=== PATIENT | male | born 1935 | race Caucasian/White ===

== ENCOUNTER 2023-07-01 10:58 | Emergency (ER) | payer MEDICARE, BC, SELFPAY ==
[2023-07-01 11:08] VITALS: BP 171/87; PULSE 67; RESP 16; TEMP 36.6; O2SAT 99; BMI 25.0
--- NOTE | 2023-07-01 11:12 | ED_ITS ---
HPI - General Adult General Chief complaint: Urogenital Problems, Male Stated complaint: peeing blood Time Seen by Provider: 07/01/23 11:10 History of Present Illness HPI narrative: Pt peeing blood since last night, it is worrisome, so he came in today. Pt has not had any prostate or bladder issues that he knows of in the pas,t except for the occasional UTI that clears after a dose of abx. He states his balance has been off the last few days as well. No fever, no chills, no nausea. He is leaving a urine sample. 88-year-old man presenting to the emergency department with concern of hematuria. He did have onset of this last night. Has not had any particular problems with urinary issues including urinary retention but he has had 1 urinary tract infection in the past. I am able to locate records noting pansensitive E coli grown from a urine culture collected on 06/10/2023. After further investigation sounds as though was treated with Bactrim DS. Otherwise he does not note any weakness but balance has been off but this is something he has struggled with for a rather long time. No dysuria. No chills. No anticoagulants. Remote smoking Related Data Home Medications Medication Instructions Recorded Confirmed amlodipine 2.5 mg tablet 2.5 mg PO QDAY 05/30/22 07/01/23 chlorthalidone 25 mg tablet 25 mg PO QDAY 05/30/22 07/01/23 cholecalciferol (vitamin D3) 50 50 mcg PO QDAY 05/30/22 07/01/23 mcg (2,000 unit) capsule dorzolamide 2 % eye drops 1 drp ophthalmic (eye) TID 05/30/22 07/01/23 ergocalciferol (vitamin D2) 10 mcg 10 mcg PO QDAY 05/30/22 07/01/23 (400 unit) tablet latanoprost 0.005 % eye drops 1 drp ophthalmic (eye) QDAY 05/30/22 07/01/23 lisinopril 40 mg tablet 40 mg PO QDAY 05/30/22 07/01/23 rosuvastatin 5 mg tablet 5 mg PO QDAY 05/30/22 07/01/23 artificial tears with lanolin eye 1 applic ophthalmic (eye) DAILY 07/01/23 07/01/23 ointment (Ultra Fresh PM eye ointment) betamethasone valerate 0.12 % 1 applic topical DAILY PRN 07/01/23 07/01/23 topical foam ketoconazole 2 % topical foam 1 applic topical BID 07/01/23 07/01/23 vitamin E mixed 400 unit tablet 400 unit PO DAILY 07/01/23 07/01/23 Allergies Allergy/AdvReac Type Severity Reaction Status Date / Time acetaminophen [From Vicodin] Allergy Verified 07/01/23 11:07 hydrocodone [From Vicodin] Allergy Verified 07/01/23 11:07 propoxycaine Allergy Verified 07/01/23 11:07 Review of Systems Status of ROS: Reports: 6 or more systems reviewed and unremarkable except as noted in History and below [facility] Medical History Nasal congestion ?R09.81 - Nasal congestion (ICD-10) Social History Smoking Status: Former smoker Exam Narrative: Exam Narrative: Very pleasant. NAD. Transitioning without difficulty. Breathing easily easily conversant. Lungs appear to be clear. Abdomen is soft and slightly uncomfortable to palpation in the right suprapubic area and a little centrally. I do not appreciate any swelling or masses. There is no flank pain. I do not see blood at the urinary meatus. Extremities are well perfused without edema. Heart in regular rate and rhythm. Const: Vital Signs, click to edit/add: Vital Signs - 24 hr 07/01/23 11:08 Temperature 97.9 F Pulse Rate [Right Pulse Oximeter] 67 Respiratory Rate 16 Blood Pressure [Ri ght Upper Arm] 171/87 H Pulse Oximetry 99 Oxygen Delivery Me thod Room Air Documenting provider has reviewed patient's vital signs: yes Course Vital Signs Vital signs: Initial Vital Signs Temperature 97.9 F 07/01/23 11:08 Temperature Source Temporal Artery Scan 07/01/23 11:08 Pulse Rate 67 07/01/23 11:08 Pulse Rhythm Regular 07/01/23 11:08 Pulse Strength 3+ Normal 07/01/23 11:08 Respiratory Rate 16 07/01/23 11:08 Blood Pressure 171/87 H 07/01/23 11:08 Blood Pressure Mean 115 H 07/01/23 11:08 Blood Pressure Position Sitting 07/01/23 11:08 Pulse Oximetry 99 07/01/23 11:08 Oxygen Delivery Method Room Air 07/01/23 11:08 Vital Signs Temperature 97.9 F 07/01/23 11:08 Pulse Rate 67 07/01/23 11:08 Respiratory Rate 16 07/01/23 11:08 Blood Pressure 171/87 H 07/01/23 11:08 Pulse Oximetry 99 07/01/23 11:08 Oxygen Delivery Method Room Air 07/01/23 11:08 Temperature 97.9 F 07/01/23 11:08 Pulse Rate 67 07/01/23 11:08 Respiratory Rate 16 07/01/23 11:08 Blood Pressure 171/87 H 07/01/23 11:08 Pulse Oximetry 99 07/01/23 11:08 Oxygen Delivery Method Room Air 07/01/23 11:08 Medical Decision Making MDM Narrative Medical decision making narrative: A like to see 1st of all whether looks more like a urinary tract infection. Does not seem to have pain consistent with kidney stone. No family history of this either. Provided it does not look like an infection, would then do further workup for hematuria. Discussed differential with Mr. Easton in that case. Was treated for recent urinary tract infection or least in the 3rd week or so of May this last year with Bactrim DS. Would use caution with Bactrim DS in this age group. Looks like cephalosporin might work with Mr. Easton in this case. Absent more significant pain and findings in urinalysis I suspect this is urinary tract infection would treat it as such at this point See patient discharge plan Lab Data Lab results reviewed: Yes I reviewed the patient's lab results Labs: Lab Results 07/01/23 Range/Units 11:09 Urine Color Red A (Yellow) Urine Appearance Slightly Cloudy A (Clear) Urine pH 5.5 (5.0-8.5) Ur Specific [place] 1.020 (1.000-1.030) Urine Protein 3+ A (Negative) Urine Glucose (UA) Negative (Negative) Urine Ketones 1+ A (Negative) Urine Blood 3+ A (Negative) Urine Nitrite Positive A (Negative) Urine Bilirubin 3+ A (Negative) Urine Urobilinogen 2.0 A (0.2-1.0) Ur Leukocyte Esterase 3+ A (Negative) Urine RBC >100 A (0-2) Urine WBC 25-50 A (0-5) Ur Squamous Epith Cells Few (None-Few) Urine Bacteria Many A (None) Discharge Plan Discharge Clinical Impression: Hematuria, Cystitis Patient Disposition: Home w/ Parent or Adult Condition: Stable Instructions: Hematuria (ED) Additional Instructions: stay well-hydrated ideally with water. Be seen/return for increasing pain and difficulty with urination, worsening lightheadedness or shortness of breath, associated fever. Otherwise I would follow-up in 3-4 weeks for urinalysis; a recheck to be sure of clearing. We will be culturing urine here. You will get a call if the antibiotic is not ideal. cephalexin from [facility]. Take for 8 days. Activity Level: No Restrictions Discharge Diet: Regular Prescriptions: No Action dorzolamide 2 % drops 1 drp ophthalmic (eye) TID latanoprost 0.005 % drops 1 drp ophthalmic (eye) QDAY lisinopril 40 mg tablet 40 mg PO QDAY chlorthalidone 25 mg tablet 25 mg PO QDAY amlodipine 2.5 mg tablet 2.5 mg PO QDAY rosuvastatin 5 mg tablet 5 mg PO QDAY cholecalciferol (vitamin D3) 50 mcg (2,000 unit) capsule 50 mcg PO QDAY ergocalciferol (vitamin D2) 10 mcg (400 unit) tablet 10 mcg PO QDAY ketoconazole 2 % foam 1 applic topical BID vitamin E mixed 400 unit tablet 400 unit PO DAILY Ultra Fresh PM Ointment 1 applic ophthalmic (eye) DAILY betamethasone valerate 0.12 % foam 1 applic topical DAILY PRN Follow Up/Referrals: Fahad Copeland MD [Primary Care Provider] - Stand Alone Forms: [employer] Info Instructions
[2023-07-01 11:17] LABS: Appearance Urine Slightly Cloudy (Clear); Bilirubin Urine 3+ (Negative); Blood Urine 3+ (Negative); Color Urine Red (Yellow); Glucose Urine Negative (Negative); Ketones Urine 1+ (Negative); Leukocyte Esterase Urine 3+ (Negative); Nitrite Urine Positive (Negative); Protein Urine 3+ (Negative); pH Urine 5.5 (5.0-8.5)
[2023-07-01 11:29] LABS: RBC Urine >100 (0-2)
[2023-07-01 11:30] LABS: Bacteria Urine Many; Squamous Epithelial Cell Urine Few (None-Few); WBC Urine 25-50 (0-5)
--- OUTSIDE RECORDS SUMMARY | 2023-07-01 11:51 | XMS_ITS | Encounter Summary ---
Author Name Department of [facility] Organization Department of [facility] Address [address] [place] [address] Support Name Relationship Address Phone ELIANE NAILS Next of Kin [address], [place] [phone] NEMOELIANE Quiroga Emergency Contact [address] [place], [place] [phone] Insurance Providers: All historical and current Section Date Range: From patient's date of to the date document was created. This section includes the names of all active insurance providers for the patient. Insurance Provider Type of Coverage Plan Name Start of Policy Coverage End of Policy Coverage Group Number Member ID Insurance Provider's Telephone Number Policy Bhagat's Name Patient's Relationship to Policy Bhagat [facility] (WNR) MEDICARE ADVANTAGE [facility] (WNR) Jun 20, 2016 [id number] [phone] LORRIE NAILS ERT PATIENT [facility] (WNR) MEDICARE ADVANTAGE [facility] (WNR) Jun 20, 2016 [id number] [phone] LORRIE NAILS PATIENT Selected Encounter This section includes the information on record at [place] for the Encounter. Date/Time Encounter Type Encounter Description Reason Provider Source Oct 08, 2022 03:30 PM OFFICE O/P EST MOD 30-39 MIN PRIMARY CARE/MEDICINE ICD-10-CM I10 Essential (primary) hypertension DAVONTE,MICH B IHE Encounter Template Text not used by [place] Assessments - Encounter Diagnoses This section includes the primary and secondary diagnoses documented for the Encounter. Date/Time Primary/Secondary Diagnosis Diagnosis Name Provider Source Oct 08, 2022 05:29 PM PRIMARY Essential (primary) hypertension DAVONTE,MICH B [facility] Oct 08, 2022 05:29 PM SECONDARY Hyperlipidemia, unspecified DAVONTE,MICH B [facility] Lab Results: +/- 30 days of the encounter This section includes the Chemistry and Hematology Lab Results on record with [place] for the patient. Radiology Reports and Pathology Reports are provided separately, in subsequent sections. Lab Results This section contains the Chemistry/Hematology Results that were resulted 30 days before or 30 daysafter the date of the Encounter. Date/Time Source Result Type Result - Unit Interpretation Reference Range Comment Oct 08, 2022 02:21 PM [facility] HEMOGLOBIN A1C Specimen Type: BLOOD Comment: Values obtained from A1C measurements can vary. For typical A1C assays, a reported value of 7.0 could actually be between 6.7 and 7.3 if measured by a reference method. A reported value of 9.0 could actually be between 8.7 and 9.3. Ref: http://www.ngs p.org/CAPdata. asp Ordering Provider: MICH ARAUZ Report Released Date/Time: Dec 18, 2021 10:51 AM Reporting Lab: [facility] [id number] Performing Lab: [facility] [id number] HEMOGLOBIN A1C 5.7 4.0-6.0 Oct 08, 2022 02:21 PM [facility] BASIC METABOLIC PANEL+MG Specimen Type: PLASMA No comment entered. Ordering Provider: MICH ARAUZ Report Released Date/Time: Dec 18, 2021 10:51 AM Reporting Lab: [facility] [id number] Performing Lab: [facility] [id number] CREATININE 0.6 L 0.7-1.2 UREA NITROGEN 14 8-26 GLUCOSE 146 H 70-100 SODIUM 137 136-145 POTASSIUM 3.5 3.5-5.1 CHLORIDE 102 98-107 CO2 28 22-29 CALCIUM 9.7 8.4-10.2 MAGNESIUM 1.9 1.6-2.6 ANION GAP 7 5-15 .CREAT EGFR(CKD-EPI ) >90 >60 Vital Signs: All taken on the encounter date This section contains inpatient and outpatient Vital Signs collected on the date of the Encounter. Date/Time Temperature Pulse Blood Pressure Respiratory Rate SP02 Pain Height Weight Body Mass Index Source Oct 08, 2022 03:17 PM 149/79 mm[Hg] 18 /min [facility] Oct 08, 2022 03:12 PM 98 F 67 /min 20 /min 99 % 0 70.5 in 177.5 lb 25 [facility] Social History: Smoking Status (Most current) and Tobacco Use (All prior to encounter date) This section includes the most current, and the historical, smoking and tobacco- related health factors from the [place] facility where the Encounter took place. Current Smoking Status This section includes the most current smoking, or tobacco-related health factor, from the [place] facility where the Encounter took place. Date/Time Current Smoking Status Comment Facil ity Oct 08, 2022 03:30 PM VA-TOBACCO NEVER USED [facility] Tobacco Use History This section includes a history of the smoking, or tobacco-related health factors, that were collected on or before the date of the Encounter. The data comes from the [place] facility where the Encounter took place. Date/Time Smoking Status/Tobacco Use Comment F acility October 23, 2020 10:30 AM VA-TOBACCO FORMER USER [facility] October 23, 2020 10:30 AM VA-TOBACCO QUIT 15 YRS OR MORE [facility] Jun 29, 2018 01:12 PM VA-TOBACCO FORMER USER [facility] Jun 29, 2018 01:12 PM VA-TOBACCO QUIT 15 YRS OR MORE [facility] Jul 22, 2017 10:25 AM FORMER TOBACCO USER 7Y OR GREATE R [facility] Sep 28, 2016 11:14 AM FORMER TOBACCO USER 7Y OR GREATE R [facility] Sep 29, 2015 10:08 AM FORMER TOBACCO USER 7Y OR GREATE R [facility] Jul 11, 2007 10:50 AM FORMER TOBACCO USER 7Y OR GREATE R [facility] Advance Directives: All historical and current Section Date Range: From patient's date of to the date document was created. This section includes ALL of a patient's completed or amended [place] Advance and Rescinded Directives. The entries below indicate that a directive exists for the patient, but an actual copy is not included with this document. The data comes from all [facility]. Date Advance Directives Provider Source Dec 06, 2020 [facility] Dec 06, 2020 ADVANCE DIRECTIVE DISCUSSION NICK RICKS [facility] October 19, 2004 ADVANCE DIRECTIVE RAMIRO ANAND [facility] Encounter Notes: All associated encounter notes This section contains the clinical notes associated to the Encounter. Date/Time Encounter Note(s) Provider Source Oct 08, 2022 03:55 PM ADMINISTRATIVE NOT E: LOCAL TITLE: AFTER VISIT SUMMARY NOTE STANDARD TITLE: ADMINISTRATIVE NOTE DICT DATE: OCT 08, 2022@15:55:32 ENTRY DATE: OCT 08, 2022@15:55:32 DICTATED BY: MICH ARAUZ EXP COSIGNER: URGENCY: STATUS: COMPLETED The patient was provided with a copy of an after-visit summary at the conclusion of the visit. A copy of the after-visit summary provided to the patient is available in [facility]. SCANNED DOCUMENT SIGNATURE NOT REQUIRED Electronically Filed: 10/08/2022 by: MICH ARAUZ MD STAFF PHYSICIAN MICH ARAUZ [facility] Oct 08, 2022 03:30 PM INTERNAL MEDICINE NOTE: LOCAL TITLE: MEDICINE CLINIC NOTE STANDARD TITLE: INTERNAL MEDICINE NOTE DATE OF NOTE: OCT 08, 2022@15:30 ENTRY DATE: OCT 08, 2022@17:26:32 AUTHOR: MICH ARAUZ EXP COSIGNER: URGENCY: STATUS: COMPLETED MEDICINE CLINIC NOTE Has ADDENDA MEDICINE CLINIC NOTE ASSESSMENT AND PLAN #Hypertension: Chlorthalidone 25 mg daily, lisinopril 40 mg, amlodipine 2.5 mg daily daily #Prediabetes: A1c OK today #Hyperlipidemia: On rosuvastatin 5 mg daily #Allergies: loratadine 10 mg PRN, Flonase #History of melanoma, 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 A total of 25 minutes was spent on this visit reviewing previous notes, counseling the patient, ordering or interpreting tests, adjusting meds, and documenting the findings in the note. CC: annual HPI The patient has been doing well recently and he has no specific complaints. His blood pressure is well controlled at home. He brought in a list of his blood pressure over the past month and it ranges between 102-125/50-60. Denies any episodes of dizziness. He is tolerating most medications well and is asking if he can get them in full tablet form. He continues to follow with [facility] for comanage medicine, but no medical changes through exam. 10 point ROS completed and negative unless noted in HPI. MEDICATION RECONCILATION Education Evaluations *Was medication education provided for NEW medications or CHANGES to medications? (including medication name, dose, route, reason for use, and potential side effects). Yes. Education on what medications? Medication changes Education provided to the following: Patient Type of education provided: Verbal Written materials Assessment of patient understanding of education content. Verbalized understanding TERATOGENIC MED & CONTRACEPTION REVIEW (Optional)... MEDICATION RECONCILIATION List Given: An updated medication list was provided to the patient/caregiver. Review Done: The medication list shown below was verified for accuracy and it includes all pending medications/active medications/all medications or discontinued within the last 90 days/all remote medications and non-VA medications. If a given category (i.e. remote meds) is not shown, that means that a patient doesn't have a medication(s) in that category. Allergies listed below were also reviewed/updated for accuracy. Allergies/ADR from [employer] may not display in CPRS. Use JLV MRT5 - Allergies/ADRs FACILITY ALLERGY/ADR -------- No Remote Allergy/ADR Data available for this patient [facility] No Known Allergies Active and Recently Outpatient Medications (including Supplies): Issue Date Status Last Fill Active Outpatient Medications Refills Expiration 1) CHLORTHALIDONE 25MG TAB Qty: 90 for 90 ACTIVE Issu:11-18-21 days Sig: TAKE ONE TABLET BY MOUTH Refills: 0 Last:08-30-22 EVERY MORNING FOR HIGH BLOOD PRESSURE Expr:11-19-22 2) DORZOLAMIDE 22.3/TIMOLOL6.8MG/ML OPH GLENN ACTIVE Issu:06-01-22 Qty: 10 for 60 days Sig: INSTILL 1 Refills: 10 Last:07-23-22 DROP IN BOTH EYES TWICE A DAY Expr:06-02-23 3) LATANOPROST 0.005% OPH SOLN Qty: 7.5 ACTIVE Issu:05-07-22 for 75 days Sig: INSTILL 1 DROP IN Refills: 5 Last:05-10-22 BOTH EYES EVERY EVENING Expr:05-08-23 4) LISINOPRIL 40MG TAB Qty: 90 for 90 days ACTIVE Issu:12-04-21 Sig: TAKE ONE TABLET BY MOUTH EVERY Refills: 0 Last:08-30-22 MORNING FOR BLOOD PRESSURE Expr:12-05-22 5) OFLOXACIN 0.3% OPH SOLN Qty: 5 for 30 ACTIVE Issu:12-23-21 days Sig: INSTILL 1 DROP IN OPERATIVE Refills: 11 Last:12-23-21 EYE FOUR TIMES A DAY Expr:12-24-22 6) PREDNISOLONE ACETATE 1% OPH SUSP Qty: ACTIVE Issu:12-23-21 10 for 44 days Sig: INSTILL 1 DROP IN Refills: 0 Last:01-26-22 OPERATIVE EYE FOUR TIMES A DAY FOR Expr:12-24-22 INFLAMMATION SHAKE WELL Issue Date Status Last Fill Pending Outpatient Medications Refills Expiration 1) AMLODIPINE BESYLATE 2.5MG TAB Qty: 45 PENDING Sig: TAKE ONE TABLET BY MOUTH EVERY Refills: 0 DAY FOR BLOOD PRESSURE 2) CHLORTHALIDONE 25MG TAB Qty: 90 Sig: PENDING TAKE ONE TABLET BY MOUTH EVERY MORNING Refills: 0 FOR HIGH BLOOD PRESSURE 3) LISINOPRIL 40MG TAB Qty: 90 Sig: TAKE PENDING ONE TABLET BY MOUTH EVERY MORNING FOR Refills: 0 BLOOD PRESSURE 4) ROSUVASTATIN CA 5MG TAB Qty: 90 Sig: PENDING TAKE ONE TABLET BY MOUTH EVERY DAY Refills: 0 Issue Date Status Last Fill Inactive Outpatient Medications Refills Expiration 1) AMLODIPINE BESYLATE 5MG TAB Qty: 45 for DISCONTINUED Issu:11-02-21 90 days Sig: TAKE ONE-HALF TABLET BY (EDIT) Last:07-21-22 MOUTH DAILY FOR BLOOD PRESSURE Refills: 0 Expr:11-03-22 2) ROSUVASTATIN CA 10MG TAB Qty: 45 for 90 DISCONTINUED Issu:11-02-21 days Sig: TAKE ONE-HALF TABLET BY Refills: 0 Last:08-30-22 MOUTH EVERY DAY FOR CHOLESTEROL Expr:11-03-22 Start Date Active Non-VA Medications Refills Expiration 1) Non-VA ASCORBIC ACID 500MG TAB Si ACTIVE MG MOUTH EVERY DAY 2) Non-VA ASPIRIN 81MG EC TAB Si MG ACTIVE MOUTH 3) Non-VA CHOLECALCIF 25MCG (D3-1,000UNIT) ACTIVE TAB SiUNIT MOUTH EVERY DAY 4) Non-VA FLUTICASONE PROP 50MCG 120D NASAL ACTIVE INHL Si SPRAYS EACH NOSTRIL EVERY DAY NEEDED 5) Non-VA LORATADINE 10MG TAB SiMG ACTIVE MOUTH EVERY DAY NEEDED 6) Non-VA MULTIVITAMIN/MINERALS CAP/TAB ACTIVE Si TABLET MOUTH EVERY DAY 7) Non-VA VITAMIN E CAP,ORAL Sig: MOUTH ACTIVE EVERY DAY 19 Total Medications PHYSICAL EXAM VS: Temp: 98 F [36.7 C] (10/08/2022 15:12) BP: 149/79 (10/08/2022 15:17) Pulse:67 (10/08/2022 15:12) Resp: 18 (10/08/2022 15:17) Pain: 0 (10/08/2022 15:12) Weight: WEIGHTS IN LAST 6 MONTHS: 177.5 (OCT 08, 2022@15:12:43) General: Sitting in exam room, no acute distress Pulmonary: Clear to auscultation bilaterally, nonlabored breathing Cardiovascular: Regular rate and rhythm, no extra sounds Extremities: No lower extremity edema Gait: Able to stand from chair without assist, gait is normal LABS and STUDIES HGB A1C: 5.7 GLUCOSE: 146 H UREA NITROGEN: 14 CREATININE: 0.6 L SODIUM: 137 POTASSIUM: 3.5 CHLORIDE: 102 CO2: 28 CALCIUM: 9.7 MAGNESIUM: 1.9 ANION GAP: 7 CREATININE EGFR (CKD-EPI): >90 /pat ARAUZ MD STAFF PHYSICIAN Signed: 10/08/2022 17:29 10/08/2022 ADDENDUM STATUS: COMPLETED HTN Assess for Elevated BP>=140/90: Patient reported blood pressure Systolic BP 118 Diastolic BP 55 The patient's blood pressure is usually adequately controlled. No medication changes are indicated at this time. Colonoscopy GAP Reminder: Recommendations are needed in the clinical reminder system following the patient's most recent colorectal cancer screening/surveillance test (Colonoscopy, Sigmoidoscopy or CT Colonography) Colorectal cancer screening/surveillance will be stopped. Reason: Patient reports last colonoscopy was normal and was told no add'l screening needed; reasonable given his advanced age /pat ARAUZ MD STAFF PHYSICIAN Signed: 10/08/2022 17:30 MICH ARAUZ [facility] Oct 08, 2022 03:14 PM INTERNAL MEDICINE OUTPATIENT NOTE: LOCAL TITLE: MEDICINE CLINIC NURSING NOTE STANDARD TITLE: INTERNAL MEDICINE OUTPATIENT NOTE DATE OF NOTE: OCT 08, 2022@15:14 ENTRY DATE: OCT 08, 2022@15:14:31 AUTHOR: SHE ANDUJAR COSIGNER: URGENCY: STATUS: COMPLETED Toxic Exposure Screening: The /caregiver was asked if they believe the [place] experienced any toxic exposure(s), such as Airborne Hazards and Open Burn [place], [place] related exposures, Agent [place], Radiation, contaminated water at [place] or other such exposures, while serving in the [employer]. has no concerns about toxic exposure(s) while serving in the [employer]. The /caregiver was informed that we will continue to ask this screening question every 5 years. They can contact their provider/healthcare team if they have concerns about exposures and would like to be screened sooner. Printed information was offered and provided if desired. Suicide Screen: C-SSRS Screening [place] Suicide Severity Rating Scale (C-SSRS) screener 1. Over the past month, have you wished you were or wished you could go to sleep and not wake up? No 2. Over the past month, have you had any actual thoughts of killing yourself? No 3. Over the past month, have you been thinking about how you might do this? Response not required due to responses to other questions. 4. Over the past month, have you had these thoughts and had some intention of acting on them? Response not required due to responses to other questions. 5. Over the past month, have you started to work out or worked out the details of how to kill yourself? Response not required due to responses to other questions. 6. If yes, at any time in the past month did you intend to carry out this plan? Response not required due to responses to other questions. 7. In your lifetime, have you ever done anything, started to do anything, or prepared to do anything to end your life (for example, collected pills, obtained a gun, gave away valuables, went to the roof but didn't jump)? No 8. If YES, was this within the past 3 months? Response not required due to responses to other questions. Depression Screening: Perform PHQ-2 A PHQ-2 screen was performed. The score was 0 which is a negative screen for depression. Over the past two weeks, how often have you been bothered by the following problems? 1. Little interest or pleasure in doing things Not at all 2. Feeling down, depressed, or hopeless Not at all Alcohol Use Screen (AUDIT-C): Alcohol Screen: SCREEN FOR ALCOHOL (AUDIT-C) An alcohol screening test (AUDIT-C) was negative (score=4). 1. How often did you have a drink containing alcohol in the past year? Two to three times per week 2. How many drinks containing alcohol did you have on a typical day when you were drinking in the past year? Three or four drinks 3. How often did you have six or more drinks on one occasion in the past year? Never Tobacco Use Screening: The patient has never used tobacco. Nursing Annual Screening: Fall History Screen During the past 12 months, have you had any falls? Patient does not report any falls in the past 12 months. MEDICATIONS: Patient is on one of the following medication classes: Antihypertensives, Antidepressants, Antipsychotics, Diuretics, or Controlled substance medication used for pain. FALL RISK ADVICE: Fall Risk Advice provided. Handout entitled Fall Prevention At Home reviewed and given to patient and/or significant other. Script Talk Screen Are you able to read your prescription bottles with your glasses, magnifiers or other aids? Yes or patient not taking any prescriptions. Skin Screen Patient reports any current pressure ulcers, a history of pressure ulcers, or a wound from a medical insurance coding specialist or Patient is bed-confined or a wheelchair-user or Patient requires assistance to transfer/change position No, Skin Screen is Negative Home Abuse/Violence Screen Is your home free of abuse and violence? Yes MOVE! Program Screen Body Mass Index (BMI)= 25.2 [place]: Collection DT Specimen Test Name Result Units Ref Range 10/08/2022 14:21 BLOOD !! HEMOGLOBIN A1C 5.7 % 4.0 - 6.0 !! Indicates COMMENTS AVAILABLE...Refer to Interim Lab Report. [place] Hgb A1C: No data available [place] Hgb A1C: No data available Point of Care Hgb A1C: POC HGB A1C____ Outpatient Nutrition Screen Body Mass Index (BMI)= 25.2 [place]: Collection DT Specimen Test Name Result Units Ref Range 10/08/2022 14:21 BLOOD !! HEMOGLOBIN A1C 5.7 % 4.0 - 6.0 !! Indicates COMMENTS AVAILABLE...Refer to Interim Lab Report. [place] Hgb A1C: No data available [place] Hgb A1C: No data available Point of Care Hgb A1C: POC HGB A1C____ Is patient's BMI less than 18.5? No Does patient have swallowing, coughing, or chewing problems affecting oral intake? No Has patient experienced unplanned weight loss or gain greater than 10 pounds over the last 2 months? No Is patient's Hgb A1C (Glycosylated Hemoglobin) greater than 9.5? Information not available Is patient receiving Total Parenteral Nutrition (TPN) or Tube Feedings? No PTSD Screening: PC-PTSD-5 A PTSD screening test (PC-PTSD-5) was positive (score=0). IN THE PAST MONTH, have you ever had any experience that was so frightening, horrible or upsetting, such as: A serious accident or fire a physical or sexual assault or abuse An earthquake or flood A war Seeing someone be killed or seriously injured Having a loved one through homocide or suicide Have you ever experienced this kind of event? NO 1. Had nightmares about the event(s) or thought about the event(s) when you did not want to? Response not required due to responses to other questions. 2. Tried hard not to think about the event(s) or went out of your way to avoid situations that reminded you of the event(s)? Response not required due to responses to other questions. 3. Been constantly on guard, watchful, or easily startled? Response not required due to responses to other questions. 4. [place] numb or detached from people, activities, or your surroundings? Response not required due to responses to other questions. 5. [place] guilty or unable to stop blaming yourself or others for the event(s) or any problems the event(s) may have caused? Response not required due to responses to other questions. Influenza Immunization: The patient declines to receive the recommended dose of seasonal influenza vaccine. Immunization: INFLUENZA, UNSPECIFIED FORMULATION Refusal Reason: PATIENT DECISION Patient refuses all immunization(s) in the FLU group Date Documented: 10/08/22 15:17 /gilberto/ SHE ANDUJAR LPN Signed: 10/08/2022 15:18 SHE ANDUJAR [facility]
--- OUTSIDE RECORDS SUMMARY | 2023-07-01 11:51 | XMS_ITS | Clinical Summary ---
Author Name Unknown Organization [facility] Address [place], [place] [address] Care Team Providers Care Store Deli Manager Name Role Phone VotelFahad MD Primary Care Provider + Allergies Active Allergy Reactions Criticality Noted Date Comments Propoxycaine Edema 03/18/2008 Fluid retention Hydrocodone-Acetaminophen Itching 08/03/2006 Medications Medication Sig Dispensed Refills Start Date End Date Status COSOPT 2 %-0.5 % EYE DROPSIndications:Othe r and unspecified hyperlipidemia one drop twice daily both eyes 0 Active MULTIVITAMIN TAB one daily 0 06/22/2007 Active travoprost 0.004% (TRAVATAN) 0.004 % Drop ophthalmic solution Place 1 Drop into both eyes at bedtime. 0 04/10/2010 Active chlorthalidone (HYGROTON) 25 mg tabletIndications:Hyp ertension Take 1 tablet by mouth once daily. 30 tablet 1 04/28/2017 Active lisinopril (PRINIVIL; ZESTRIL) 40 mg tablet Take 1 tablet by mouth once daily. 0 12/21/2017 Active amLODIPine (NORVASC) 2.5 mg tabletIndications:HTN (hypertension) Take 1 tablet by mouth once daily. 0 12/14/2018 Active rosuvastatin (CRESTOR) 5 mg tabletIndications:Hyp erlipidemia, unspecified hyperlipidemia type,HTN (hypertension) Take 1 tablet by mouth at bedtime. 0 12/14/2018 Active vitamin e 400 unit capsule Take 1 Capsule (400 units) by mouth once daily. 0 04/07/2021 Active cholecalciferol (Vitamin D) 1,000 unit capsule Take 2 Capsules (2,000 units) by mouth once daily. 30 Capsule 0 10/27/2021 Active latanoprost (XALATAN) 0.005 % ophthalmic solution INSTILL 1 DROP IN BOTH EYES EVERY EVENING 0 05/07/2022 Active dorzolamide-timoloL (COSOPT) 2-0.5 % ophthalmic solution Place 1 Drop into both eyes two times daily. 0 06/01/2022 Active trimethoprim-sulfamet hoxazole, 160-800 mg, (BACTRIM DS, SEPTRA DS) tabIndications:Compli cated UTI (urinary tract infection) Take 1 Tablet by mouth two times daily for 7 days. 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 10/27/2021 Hx of colonic polyps 04/20/2012 Hypertension 12/15/2011 Diabetes mellitus type II 02/24/2011 Overview: [facility] DM Encounters Date Type Department Care Team Description 06/30/2023 9:30 AM FIELD CARE ADVOCATE Orders Only [facility] [address] [place] [address] Lab, [place] [facility] 06/30/2023 Travel 06/27/2023 Travel 06/10/2023 7:00 AM FIELD CARE ADVOCATE Office Visit [facility] [address] [place] [address] Essence Servin PA UTI (Urination restriction, burning with urination, odor- 2 days ago) 06/10/2023 Travel from Last 3 Months Immunizations Name Administration Dates Next Due AMB INFLUENZA IIV3 (AGE 65+ YRS) PF (Flu Clinic Only) 03/08/2018 AMB Influenza, IIV3 (Age >=3 years)(Flu Clinic Only) 03/08/2013,03/10/2012,04/01/2011 Amb Influenza, Inact (High-d ose) (Flu Clinic Only) 03/08/2014 Amb Influenza, Inactivated A IIV4 (Age 65+ Years) Preserv Free 03/05/2020 COVID-19 vaccine (Talentwise NTech 10mcg/0.2mL) PEDS 5-11 YO PFPRICE 10/06/2021 COVID-19 vaccine (Zadby-Bio NTech 30mcg/0.3mL) 12YO+ MEGHAN-SUCROSE PF, MDV 10/06/2021 COVID-19 vaccine (Pfizer-Bio NTech 30mcg/0.3mL) PF, MDV 03/26/2021,08/13/2020,07/23/2020 COVID-19 vaccine Comirnaty (Zadby-BioNTech 30mcg/0.3mL) 12YO+ [id number] Formula PF, SDV, PFS 03/24/2023 Influenza A (H1N1), Inactivated 06/23/2009,05/20 Influenza A (H1N1), Inactiva manju (Age >=3 Years) 06/23/2009 Influenza Virus, Unspecified 02/19/2020, 03/20/2008,04/20/2007,05/21,03/28/2005,03/14/2005 Influenza, High-dose Inactivated 03/15/2016,02/19,03/08/2014 Influenza, High-dose Quadriv alent Inactivated 03/31/2022 Influenza, IIV3 (Age 6-35 mos) 04/01/2011,2009,03/05/2009 Influenza, IIV3 (Age >=3 years) 03/08/20 13,03/10/2012,04/06/2004,04/08,04/13/2002,04/18/2001 Influenza, Inactivated AIIV4 (Age 65+ Years) Preserv Free 03/03/2023,03/04/2021 Influenza, Inactivated IIV3 (Age 65+ Years) Preserv Free 03/05/2019,03/28/2017 Pneumococcal Poly,23-Valent (Pneumovax) 06/20/2016,12/15/2011,07/08/2000 Pneumococcal conj 13-Valent (Prevnar 13) 03/12/2015,02/18/2015 Pneumococcal, Unspecified 03/20/2000 RSV, Recombinant ADJ Reconst ituted (Arexvy 120MCG/0.5mL) 04/01/2023 TD, UNSPECIFIED 06/20/2004 Td (Age >=7 Years) 01/27/1996 Td, Preservative Free (age >= 7 Years) 9 Tdap 08/21/2013,12/15/2011 Zoster (Shingrix-RZV, recombinant) 07/31/2019, Zoster (Zostavax-ZVL, live) 07/17/2007, 8 Social History Tobacco Use Types Packs/Day Years Used Date Smoking Tobacco: Former Cigarettes Q uit: 06/20/1971 Smokeless Tobacco: Never Tobacco Cessation:Counseling Given: Yes Alcohol Use Standard Drinks/Week Comments Yes 4 (1 standard drink = 0.6 oz pur e alcohol) 3-4 drinks per week PHQ-2 Answer Date Recorded PHQ-2 TOTAL SCORE 0 10/27/2021 Social Connections Answer Date Recorded Frequency of Communication with Friends and Fami ly Not on file 11/01/2022 Financial Resource Strain Answer Date R ecorded Difficulty of Paying Living Expenses 3 10/27/2021 Difficulty of Paying Living Expenses Not on file 10/27/2021 Food Insecurity Answer Date Recorded Worried About Running Out of Food in the Last Ye ar 1 10/27/2021 Transportation Needs Answer Date Record ed Lack of Transportation (Medical) 1 10/27/2021 Housing Stability Answer Date Recorded Unable to Pay for Housing in the Last Year 1 10/27/2021 Sex and Gender Information Value Date Recorded Sex Assigned at Not on file Gender Identity Not on file Sexual Orientation Not on file Obstetrics History Last Filed Vital Signs Vital Sign Reading Time Taken Comments Blood Pressure 139/80 06/10/2023 7:05 AM FIELD CARE ADVOCATE Pulse 97 06/10/2023 7:05 AM FIELD CARE ADVOCATE Temperature 36.7 ??C (98 ??F) 06/09/2022 3:00 PM FIELD CARE ADVOCATE Respiratory Rate - - Oxygen Saturation 98% 06/10/2023 7:05 AM FIELD CARE ADVOCATE Inhaled Oxygen Concentration - - Weight 77.7 kg (171 lb 6.4 oz) 06/10/2023 7:05 A M FIELD CARE ADVOCATE Height 175.3 cm (5' 9) 06/09/2022 3:00 PM FIELD CARE ADVOCATE Body Mass Index 25.31 06/09/2022 3:00 PM FIELD CARE ADVOCATE Plan of Treatment Upcoming Encounters Date Type Department Care Team (Late st Contact Info) Description 07/05/2023 1:15 PM FIELD CARE ADVOCATE Office Visit [facility] [address] [place] [address] Fahad Copeland MD [address] [facility] [address] Health Maintenance Due Date Last Done Comments Depression screening for age 12+ 10/27/2022 10/27/2021, 02/05/2021, 07/05/2018, Additional history exists BMI (ht and wt on same day) for age 18+ 06/09/2023 06/09/2022, 12/31/2021, 10/27/2021, Additional history exists Tetanus booster 08/22/2023 08/21/2013, 11/19, 07/05/2008, Additional history exists Medicare Wellness for age 65+ 10/08/2023 (Completed outside of [facility]), 10/27/2021, 03/12/2015 Tdap Completed 08/21/2013, 12/15/2011 Pneumococcal series for age 65+ Completed 06/20/2016, 03/12/2015, 02/18/2015, Additional history exists Zoster (shingles) series for age 50+ Completed 07/31/2019, 04/26/2019, 07/17/2007, Additional history exists Influenza for age 65+ Completed 03/03/2023 , 03/31/2022, 03/04/2021, Additional history exists COVID-19 vaccine series Completed 03/24/20, 03/16/2022, 10/06/2021, Additional history exists Procedures Procedure Name Priority Date/Time Associated Diagnosis Comments BASIC METABOLIC PANEL Routine 06/30/2023 9:37 AM FIELD CARE ADVOCATE Type 2 diabetes mellitus without complication, without long-term current use of insulin (HC) LIPID PANEL W REFLEX MEASURED LDL Routine 06/30/2023 9:37 AM FIELD CARE ADVOCATE Screening cholesterol level HEMOGLOBIN A1C Routine 06/30/2023 9:37 AM FIELD CARE ADVOCATE Type 2 diabetes mellitus without complication, without long-term current use of insulin (HC) URINALYSIS MICROSCOPIC Routine 06/10/2023 7:19 AM FIELD CARE ADVOCATE Pain with urination URINE CULTURE Routine 06/10/2023 7:19 AM FIELD CARE ADVOCATE Pain with urination UA W/ SEDIMENT EXAM REFLEXED PER CRITERIA Routine 06/10/2023 7:19 AM FIELD CARE ADVOCATE Pain with urination from Last 3 Months Results * LIPID PANEL W REFLEX MEASURED LDL (06/30/2023 9:37 AM FIELD CARE ADVOCATE) CHOLESTEROL,TOTAL 148 100 - 199 mg/dL 06/30/2023 3:41 PM FIELD CARE ADVOCATE [facility] Comment: Cholesterol, Total Reference Ranges Desirable <200 mg/dL Borderline 200-239 mg/dL High >=240 mg/dL TRIGLYCERIDES 89 <150 mg/dL 06/30/2023 3:41 PM FIELD CARE ADVOCATE [facility] HDL CHOLESTEROL 52 >40 mg/dL 3:41 PM FIELD CARE ADVOCATE [facility] NON-HDL CHOLESTEROL 96 <145 mg/dl 06/30/2023 3:41 PM FIELD CARE ADVOCATE [facility] CHOL/HDL RATIO 2.85 <4.50 06/30/2023 3:41 PM FIELD CARE ADVOCATE [facility] LDL CHOLESTEROL 78 <=130 mg/dL 06/30/2023 3:41 PM FIELD CARE ADVOCATE [facility] VLDL CHOLESTEROL 18 <=30 mg/dL 06/30/2023 3:41 PM FIELD CARE ADVOCATE [facility] PROVIDER ORDERED STATUS RANDOM 06/30/2023 3:41 PM FIELD CARE ADVOCATE [facility] Blood BLOOD SPECIMEN / Unknown Venipuncture / Unknown 06/30/2023 9:37 AM FIELD CARE ADVOCATE 06/30/2023 9:39 AM FIELD CARE ADVOCATE Fahad Copeland MD CHEMISTRY [facility] [address] [place] [address], * HEMOGLOBIN A1C MONITORING (POCT) (06/30/2023 9:37 AM FIELD CARE ADVOCATE) HEMOGLOBIN A1C MONITORING (POCT) 5.9 <=6.4 % 06/30/2023 9:49 AM FIELD CARE ADVOCATE [facility] Blood BLOOD SPECIMEN / Unknown Venipuncture / Unknown 06/30/2023 9:37 AM FIELD CARE ADVOCATE 06/30/2023 9:39 AM FIELD CARE ADVOCATE Narrative [facility] - 06/30/2023 9:49 AM FIELD CARE ADVOCATE ? (<=6.9%) ? Indicates good control ? (7.0% to 7.9%) ? Indicates fair control ? (>=8.0%) ? Indicates poor control ?? NOTE: ??These thresholds are guidelines and ?individual targets may vary. Falsely low levels may be seen with: Recent Transfusion, Recent Significant Blood Loss, Hemolytic Diseases, or Falsely elevated levels may be seen with: Untreated Anemias, Splenectomy ? Fahad Copeland MD CHEMISTRY [facility] [address] [place] [address], * (ABNORMAL) BASIC METABOLIC PANEL (06/30/2023 9:37 AM FIELD CARE ADVOCATE) SODIUM 139 136 - 145 mmol/L 06/30/2023 3:41 PM [facility] POTASSIUM 3.8 3.5 - 5.1 mmol/L 06/30/2023 3:41 PM [facility] CHLORIDE 101 98 - 107 mmol/L 06/30/2023 3:41 PM [facility] CO2,TOTAL 28 22 - 29 mmol/L 06/30/2023 3:41 PM [facility] ANION GAP 10 5 - 18 06/30/2023 3:41 PM [facility] GLUCOSE 121(H) 70 - 99 mg/dL 06/30/2023 3:41 PM [facility] CALCIUM 9.8 8.8 - 10.2 mg/dL 06/30/2023 3:41 PM [facility] BUN 18 8 - 23 mg/dL 06/30/2023 3:41 PM [facility] CREATININE 0.86 0.70 - 1.20 mg/dL 06/30/2023 3:41 PM [facility] BUN/CREAT RATIO 21(H) 10 - 20 4 3:41 PM [facility] eGFR 84(L) >90 mL/min/1.7 3m2 06/30/2023 3:41 PM [facility] Comment:As of 2021, eG FR is calculated by the CKD-EPI creatinine equation without race adjustment. ??eGFR can be influenced by muscle mass, exercise, and diet. ??The reported eGFR is an estimation only and is only applicable if the renal function is stable. Blood BLOOD SPECIMEN / Unknown Venipuncture / Unknown 06/30/2023 9:37 AM FIELD CARE ADVOCATE 06/30/2023 9:39 AM FIELD CARE ADVOCATE Fahad Copeland MD [facility] [address] [place] [id number], * (ABNORMAL) URINALYSIS MICROSCOPIC (06/10/2023 7:19 AM FIELD CARE ADVOCATE) RBC 26-50(A) 0-2, None Seen /HPF 06/10/2023 7:25 AM FIELD CARE ADVOCATE [facility] WBC 11-25(A) 0-2, 3-5, None Seen /HPF 06/10/2023 7:25 AM [facility] BACTERIA Many(A) None Seen, Rare, Few Bacteria/H PF 06/10/2023 7:25 AM FIELD CARE ADVOCATE [facility] EPITHELIAL CELLS Few None Seen, Few Epi/HPF 06/10/2023 7:25 AM [facility] Urine URINE SPECIMEN / Unknown Non-Blood / Unknown 06/10/2023 7:19 AM FIELD CARE ADVOCATE 06/10/2023 7:19 AM FIELD CARE ADVOCATE Essence DERAS URINE [facility] [address] [place] [address], [place] [phone] * (ABNORMAL) URINE CULTURE (06/10/2023 7:19 AM FIELD CARE ADVOCATE) CULTURE RESULT(A) 06/12/2023 7:01 AM FIELD CARE ADVOCATE [facility] CULTURE >100,000 CFU/mL Escherichia coli 06/12/2023 7:01 AM FIELD CARE ADVOCATE [facility] Urine URINE SPECIMEN / Unknown Non-Blood / Unknown 06/10/2023 7:19 AM FIELD CARE ADVOCATE 06/10/2023 7:19 AM FIELD CARE ADVOCATE Narrative Organism Antibiotic Method Susceptibility Escherichia coli TRIMETHOPRIM/SULF <=07/08: S Escherichia coli AMPICILLIN <=2: S Escherichia coli CEFAZOLIN-UC <=4: S Comment:Cefazolin-UC interpretations are for therapy of uncomplicated UTIs due to E.coli, K.pneumoniae, or P.mirablis. Cefazolin breakpoint is used as a surrogate to predict results for the oral agents - cefdinir, cefuroxime, and cephalexin, when used for therapy of uncomplicated UTIs due to E coli, K, pneumoniae, and P. mirabilis. The FDA recommends cefadroxil susceptibility can be deduced from cefazolin. Escherichia coli GENTAMICIN <=1: S Escherichia coli CEFTRIAXONE <=1: S Escherichia coli CEFTAZIDIME <=1: S Escherichia coli LEVOFLOXACIN <=0.12: S Escherichia coli CIPROFLOXACIN <=0.25: S Escherichia coli PIPERACILLIN/TAZO <=4: S Escherichia coli AMPICILLIN/SULBACTAM <=2: S Escherichia coli CEFEPIME <=1: S Escherichia coli TOBRAMYCIN <=1: S Escherichia coli MEROPENEM <=0.25: S Escherichia coli NITROFURANTOIN <=16: S Essence DERAS MICROBIOLOGY [facility] [address] [place] [address], [place] * (ABNORMAL) UA W/ SEDIMENT EXAM REFLEXED PER CRITERIA (06/10/2023 7:19 AM FIELD CARE ADVOCATE) COLOR Yellow Yellow Color 06/10/2023 7:25 AM [facility] CLARITY Slightly Cloudy(A) Clear Clarity 06/10/2023 7:25 AM [facility] SPECIFIC GRAVITY,URINE 1.025 1.010, 1.015, 1.020, 1.025 06/10/2023 7:25 AM [facility] PH,URINE 5.5 6.0, 7.0, 8.0, 5.5, 6.5, 7.5, 8.5 06/10/2023 7:25 AM [facility] UROBILINOGEN, QUALITATIVE Normal Normal EU/dl 06/10/2023 7:25 AM [facility] PROTEIN, URINE 30(A) Negative mg/dL 06/10/2023 7:25 AM [facility] GLUCOSE, URINE Negative Negative mg/dL 06/10/2023 7:25 AM [facility] KETONES,URINE 40(A) Negative mg/dL 06/10/2023 7:25 AM [facility] BILIRUBIN,URI NE Negative Negative 06/10/2023 7:25 AM [facility] OCCULT BLOOD,URINE Large(A) Negative 06/10/2023 7:25 AM [facility] NITRITE Positive(A) Negative 06/10/2023 7:25 AM [facility] LEUKOCYTE ESTERASE Small(A) Negative 06/10/2023 7:25 AM [facility] Urine URINE SPECIMEN / Unknown Non-Blood / Unknown 06/10/2023 7:19 AM FIELD CARE ADVOCATE 06/10/2023 7:19 AM FIELD CARE ADVOCATE Essence DERAS URINE [facility] [address] [place] [address], [place] [phone] from Last 3 Months Advance Directives Documents on File Type Date Recorded Patient Line Ordering Clinician Expl anation Healthcare Directive 06/18/2013 8:53 AM Saqib GOULD [facility], 04/24/2013 Care Teams Store Deli Manager Relationship Specialty Start Date End Date Votel, Fahad Gar MD [address] [place] [address] PCP - General Family Practice 02/16/21
--- OUTSIDE RECORDS SUMMARY | 2023-07-01 11:51 | XMS_ITS | Encounter Summary ---
Author Name [facility] Organization [facility] Address [address] [place] [address] Support Name Relationship Address Phone ELIANE NAILS Next of Kin [address] [place] [address] ELIANE NAILS Emergency Contact [address] [place] [address] Insurance Providers: All historical and current Section Date Range: From patient's date of to the date document was created. This section includes the names of all active insurance providers for the patient. Insurance Provider Type of Coverage Plan Name Start of Policy Coverage End of Policy Coverage Group Number Member ID Insurance Provider's Telephone Number Policy Bhagat's Name Patient's Relationship to Policy Bhagat [facility] (WNR) MEDICARE ADVANTAGE [facility] (WNR) Jun 20, 2016 [id number] [phone] NEMOJJLORRIE ERT PATIENT [facility] (WNR) MEDICARE ADVANTAGE [facility] (WNR) Jun 20, 2016 [id number] [phone] NEMOLORRIE GARDNER ERT PATIENT Selected Encounter This section includes the information on record at [place] for the Encounter. Date/Time Encounter Type Encounter Description Reason Pro vider Source Oct 08, 2022 12:00 AM Outpatient Encounter EVENT (HISTORICAL) [facility] Encounter Template [facility] not used by [facility] Lab Results: +/- 30 days of the encounter This section includes the Chemistry and Hematology Lab Results on record with [place] for the patient. Radiology Reports and Pathology Reports are provided separately, in subsequent sections. Lab Results This section contains the Chemistry/Hematology Results that were resulted 30 days before or 30 daysafter the date of the Encounter. Date/Time Source Result Type Result - Unit Interpretation Reference Range Comment Oct 08, 2022 02:21 PM [facility] HEMOGLOBIN A1C Specimen Type: BLOOD Comment: Values obtained from A1C measurements can vary. For typical A1C assays, a reported value of 7.0 could actually be between 6.7 and 7.3 if measured by a reference method. A reported value of 9.0 could actually be between 8.7 and 9.3. Ref: http://www.ngs p.org/CAPdata. asp Ordering Provider: ARABELLA ARAZU Report Released Date/Time: Dec 18, 2021 10:51 AM Reporting Lab: [facility] [id number] Performing Lab: [facility] [id number] HEMOGLOBIN A1C 5.7 4.0-6.0 Oct 08, 2022 02:21 PM [facility] BASIC METABOLIC PANEL+MG Specimen Type: PLASMA No comment entered. Ordering Provider: ARABELLA ARAUZ Report Released Date/Time: Dec 18, 2021 10:51 AM Reporting Lab: [facility] [id number] Performing Lab: [facility] [id number] CREATININE 0.6 L 0.7-1.2 U[facility] NITROGEN 14 [...] 2022 03:17 PM 149/79 mm[Hg] 18 /min [facility] Oct 08, 2022 03:12 PM 98 F 67 /min 20 /min 99 % 0 70.5 in 177.5 lb 25 [facility] Social History: Smoking Status (Most current) and Tobacco Use (All prior to encounter date) This section includes the most current, and the historical, smoking and tobacco- related health factors from the [facility] where the Encounter took place. Current Smoking Status This section includes the most current smoking, or tobacco-related health factor, from the [facility] where the Encounter took place. Date/Time Current Smoking Status Comment Reena ity Oct 08, 2022 03:30 PM VA-TOBACCO NEVER USED [facility] Tobacco Use History This section includes a history of the smoking, or tobacco-related health factors, that were collected on or before the date of the Encounter. The data comes from the [place] facility where the Encounter took place. Date/Time Smoking Status/Tobacco Use Comment F acility October 23, 2020 10:30 AM VA-TOBACCO FORMER USER [facility] October 23, 2020 10:30 AM VA-TOBACCO QUIT 15 YRS OR MORE [facility] Jun 29, 2018 01:12 PM VA-TOBACCO FORMER USER [facility] Jun 29, 2018 01:12 PM [place]-TOBACCO QUIT 15 YRS OR MORE [facility] Jul 22, 2017 10:25 AM FORMER TOBACCO USER 7Y OR GREATE R [facility] Sep 28, 2016 11:14 AM FORMER TOBACCO USER 7Y OR GREATE R [facility] Sep 29, 2015 10:08 AM FORMER TOBACCO USER 7Y OR GREATE R [facility] Jul 11, 2007 10:50 AM FORMER TOBACCO USER 7 OR GREATE R [facility] Advance Directives: All historical and current Section Date Range: From patient's date of to the date document was created. This section includes ALL of a patient's completed or amended [place] Advance and Rescinded Directives. The entries below indicate that a directive exists for the patient, but an actual copy is not included with this document. The data comes from all [facility]. Date Advance Directives Provider Source Dec 06, 2020 ADVANCE DIRECTIVE YUMI RICKS [facility] Dec 06, 2020 ADVANCE DIRECTIVE DISCUSSION NICK RICKS [facility] October 19, 2004 [facility]
--- OUTSIDE RECORDS SUMMARY | 2023-07-01 11:51 | XMS_ITS | Encounter Summary ---
Author Name Department of [facility] Organization Department of [facility] Address [address] [place] [address] Support Name Relationship Address Phone ELIANE NAILS Next of Kin [address] [place], [place] [phone] NEMOELIANE Quiroga Emergency Contact [address] [place], [place] [phone] Insurance Providers: All historical and current Section Date Range: From patient's date of to the date document was created. This section includes the names of all active insurance providers for the patient. Insurance Provider Type of Coverage Plan Name Start of Policy Coverage End of Policy Coverage Group Number Member ID Insurance Provider's Telephone Number Policy Bhagat's Name Patient's Relationship to Policy Bhagat [facility] (WNR) MEDICARE ADVANTAGE [facility] (WNR) Jun 20, 2016 [id number] [phone] LORRIE NAILS ERT PATIENT [facility] (WNR) MEDICARE ADVANTAGE [facility] (WNR) Jun 20, 2016 [id number] [phone] LORRIE NAILS ERT PATIENT Selected Encounter This section includes the information on record at NH for the Encounter. Date/Time Encounter Type Encounter Description Reason Pro vider Source Sep 01, 2022 12:00 AM Outpatient Encounter ADMIN PAT ACTIVTIES (MASNONCT) IHE Encounter Template Text not used by [place] Plan of Treatment: Future Appointments (+ 6 months) and Future Tests (+/- 45 days) The Plan of Treatment section includes future care activities for the patient from all [facility] treatment[facility]. This section includes future appointments and future orders which are active, pending or scheduled. Future Appointments This section includes appointments that were scheduled to occur 6 months from the date of the Encounter, up to a maximum of 20 appointments. The data comes from all [place] treatment facilities. Appointment Date/Time Appointment Type Appointme nt Facility Name Oct 08, 2022 02:30 PM AMBULATORY - NONE [facility] Oct 08, 2022 03:30 PM AMBULATORY - MEDICINE ARVINAimee JOHN [facility] Social History: Smoking Status (Most current) and Tobacco Use (All prior to encounter date) This section includes the most current, and the historical, smoking and tobacco- related health factors from the NH facility where the Encounter took place. Current Smoking Status This section includes the most current smoking, or tobacco-related health factor, from the NH facility where the Encounter took place. Date/Time Current Smoking Status Comment Facil ity October 23, 2020 10:30 AM VA-TOBACCO FORMER USER [facility] Tobacco Use History This section includes a history of the smoking, or tobacco-related health factors, that were collected on or before the date of the Encounter. The data comes from the [facility] where the Encounter took place. Date/Time Smoking Status/Tobacco Use Comment F acility October 23, 2020 10:30 AM VA-TOBACCO QUIT 15 YRS OR MORE [facility] Jun 29, 2018 01:12 PM VA-TOBACCO FORMER USER [facility] Jun 29, 2018 01:12 PM NH-TOBACCO QUIT 15 YRS OR MORE [facility] Jul 22, 2017 10:25 AM FORMER TOBACCO USER 7Y OR GREATE R [facility] Sep 28, 2016 11:14 AM FORMER TOBACCO USER 7Y OR GREATE R [facility] Sep 29, 2015 10:08 AM FORMER TOBACCO USER 7Y OR GREATE R [facility] Jul 11, 2007 10:50 AM FORMER TOBACCO USER 7Y OR GREATE R [facility] Advance Directives: All historical and current Section Date Range: From patient's date of to the date document was created. This section includes ALL of a patient's completed or amended [place] Advance and Rescinded Directives. The entries below indicate that a directive exists for the patient, but an actual copy is not included with this document. The data comes from all [facility]. Date Advance Directives Provider Source Dec 06, 2020 ADVANCE DIRECTIVE YUMI RICKS [facility] Dec 06, 2020 ADVANCE DIRECTIVE DISCUSSION NICK RICKS [facility] October 19, 2004 ADVANCE DIRECTIVE RAMIRO ANAND [facility] Encounter Notes: All associated encounter notes This section contains the clinical notes associated to the Encounter. Date/Time Encounter Note(s) Provider Source Sep 01, 2022 12:00 AM NONVA NOTE: LOCAL TITLE: OPHTHALMOLOGY NONVA NOTE STANDARD TITLE: NONVA NOTE DATE OF NOTE: SEP 01, 2022 ENTRY DATE: SEP 08, 2022@08:14:13 AUTHOR: LISA MILLS EXP COSIGNER: URGENCY: STATUS: COMPLETED [facility] - Scanned Document This note contains attached OPTHALMOLOGY scanned document(s) received from an outside facility. Open [facility] Display to review the document(s). /gilberto/ LISA MILLS [facility] IN[facility] INBOUND SALES ADVISOR Signed: 09/08/2022 08:14 LISA MILLS [facility]
--- OUTSIDE RECORDS SUMMARY | 2023-07-01 11:51 | XMS_ITS | Encounter Summary ---
Author Name [facility] Organization [facility] Address [address] [place] [address] Support Name Relationship Address Phone ELIANE NAILS Next of Kin [address] [place], [place] [phone] ELIANE NAILS Emergency Contact [address] [place], [place] [phone] Insurance Providers: All historical and current Section Date Range: From patient's date of to the date document was created. This section includes the names of all active insurance providers for the patient. Insurance Provider Type of Coverage Plan Name Start of Policy Coverage End of Policy Coverage Group Number Member ID Insurance Provider's Telephone Number Policy Bhagat's Name Patient's Relationship to Policy Bhagat [facility] (WNR) MEDICARE ADVANTAGE [facility] (WNR) Jun 20, 2016 [id number] [phone] NEMOJJLORRIE ERT PATIENT [facility] (WNR) MEDICARE ADVANTAGE [facility] (WNR) Jun 20, 2016 [id number] [phone] NEMOLORRIE GARDNER ERT PATIENT Selected Encounter This section includes the information on record at [place] for the Encounter. Date/Time Encounter Type Encounter Description Reason Provider Source May 19, 2023 03:00 PM OFFICE O/P EST MOD 30-39 MIN DERMATOLOGY ICD-10-CM L57.0 Actinic keratosis KARLO WICK Encounter Template Text not used by [place] Assessments - Encounter Diagnoses This section includes the primary and secondary diagnoses documented for the Encounter. Date/Time Primary/Secondary Diagnosis Diagnosis Name Provider Source May 19, 2023 04:44 PM PRIMARY Actinic keratosis JUAN CARLOS BLAIR [facility] May 19, 2023 04:44 PM SECONDARY Hemangioma of skin and subcutaneous tissue ROSSYJUAN CARLOS PENALOZA [facility] May 19, 2023 04:44 PM SECONDARY Other hypertrophic disorders of the skin ROSSYJUAN CARLOS [facility] May 19, 2023 04:44 PM SECONDARY Other seborrheic dermatitis ROSSYJUAN CARLOS [facility] May 19, 2023 04:44 PM SECONDARY Other seborrheic keratosis ROSSYJUAN CARLOS [facility] Plan of Treatment: Future Appointments (+ 6 months) and Future Tests (+/- 45 days) The Plan of Treatment section includes future care activities for the [facility] [place] [facility] This section includes future appointments and future orders which are active, pending or scheduled. Future Appointments This section includes appointments that were scheduled to occur 6 months from the date of the Encounter, up to a maximum of 20 appointments. The data comes from [facility]. Appointment Date/Time Appointment Type Appointme nt Facility Name Jul 19, 2023 01:00 PM AMBULATORY - REHAB MEDICIN E [facility] Social History: Smoking Status (Most current) and Tobacco Use (All prior to encounter date) This section includes the most current, and the historical, smoking and tobacco- related health factors from the [place] facility where the Encounter took place. Current Smoking Status This section includes the most current smoking, or tobacco-related health factor, from the [place] facility where the Encounter took place. Date/Time Current Smoking Status Comment Reena ity Oct 08, 2022 03:30 PM VA-TOBACCO NEVER USED [facility] Tobacco Use History This section includes a history of the smoking, or tobacco-related health factors, that were collected on or before the date of the Encounter. The data comes from the [place] facility where the Encounter took place. Date/Time Smoking Status/Tobacco Use Comment F acility October 23, 2020 10:30 AM VA-TOBACCO FORMER USER [facility] October 23, 2020 10:30 AM VA-TOBACCO QUIT 15 YRS OR MORE [facility] Jun 29, 2018 01:12 PM VA-TOBACCO FORMER USER [facility] Jun 29, 2018 01:12 PM VA-TOBACCO QUIT 15 YRS OR MORE [facility] Jul 22, 2017 10:25 AM FORMER TOBACCO USER 7Y OR GREATE R [facility] Sep 28, 2016 11:14 AM FORMER TOBACCO USER 7Y OR GREATE R [facility] Sep 29, 2015 10:08 AM FORMER TOBACCO USER 7Y OR GREATE R [facility] Jul 11, 2007 10:50 AM FORMER TOBACCO USER 7Y OR KISHOR R [facility] Advance Directives: All historical and current Section Date Range: From patient's date of to the date document was created. This section includes ALL of a patient's completed or amended [place] Advance and Rescinded Directives. The entries below indicate that a directive exists for the patient, but an actual copy is not included with this document. The data comes from all [place] facilities. Date Advance Directives Provider Source Dec 06, 2020 ADVANCE DIRECTIVE YUMI RICKS [facility] Dec 06, 2020 ADVANCE DIRECTIVE DISCUSSION NICK RICKS [facility] October 19, 2004 ADVANCE DIRECTIVE RAMIRO ANAND [facility] Encounter Notes: All associated encounter notes This section contains the clinical notes associated to the Encounter. Date/Time Encounter Note(s) Provider Source May 19, 2023 03:55 PM DERMATOLOGY ATTEND ING NOTE: LOCAL TITLE: DERMATOLOGY CLINIC NOTE STANDARD TITLE: DERMATOLOGY ATTENDING NOTE DATE OF NOTE: MAY 19, 2023@15:55 ENTRY DATE: MAY 19, 2023@15:55:59 AUTHOR: JUAN CARLOS BLAIR EXP COSIGNER: URGENCY: STATUS: COMPLETED DERMATOLOGY CLINIC NOTE Has ADDENDA DERMATOLOGY PROBLEM LIST: UBSE 05/19/23 # Hx NMSC - Right back, SCC or BCC, excision 2004 in [place], [place] with Dr. Ambar Agustin. - Per EMR, pt initially reported this may have been a melanoma at first visit at [facility] in Summer 2020, though some question about this given patient was uncertain about follow-up after excision, etc. Patient reports records were looked into after visit at [facility] in 2020 and he received a call stating that this was apparently NOT a melanoma. There do not appear to be any records of this on file on our EMR. # AK - R upper forehead, LN2 on 02/11/22. # EIC - R cheek, not bothersome # Dustin derm + mild left sided scalp pruritis (?neurogenic) - Alternating Keto + Head and shoulders - Betamethasone lotion BID PRN CHIEF COMPLAINT: UBSE SUBJECTIVE: PAULO NAILS is a 88 year old MALE who presents today in for above concern. - Needle like prick spot on his forehead that we froze last year. - Has an itch on the left side of his scalp, present for many years. Does not affect sleep, mild but persistent. Has history of neck pain and wearing a neck brace. - Using head and shoulders every other day - Blistering sunburns as child: YES - Denies other lesions that are tender, non-healing or bleeding. OBJECTIVE: GEN: A&O x3. No acute distress. SKIN: UBSE of the head, neck, chest, abdomen, back, bilateral upper extremities, and hands was performed and notable for the following significant findings: - On the central forehead, there are gritty pink papules. - On the central chest there is a firm nodule 1.5x1.5cm without central punctum (not changing much over many years, never drains) - On the trunk and extremities, there are scattered flesh-colored to brown, waxy, stuck-on papules and plaques. - On the trunk and extremities with accentuation in sun-exposed areas, there are light brown macules with uniform appearance. - On the trunk and extremities, there are scattered medium brown macules with uniform pigment networkds under dermoscopy - On trunk and extremities, there are scattered bright red papules. - Previous sites of skin cancer noted above were examined. No evidence for recurrence by inspection or palpation. ASSESSMENT & PLAN: # History of NMSC. - No evidence of recurrence on exam today. # Actinic keratoses - LN2 as below # Benign skin findings - Seborrheic keratoses - Solar lentigines - Bhakta hemangiomas - Clinically benign melanocytic nevi - Reassured of benign etiology - ABCDEs of melanoma discussed - Encouraged sunscreen and sun protective behaviors # seborrheic dermatitis # mild scalp pruritis, left parietal scalp No clear scale or perifollicular redness on exam today. Ddx for unilateral scalp pruritis favoring neurogenic in the setting of previous neck injuries (had to wear a neck brace for a number of years), but is mild and not affecting sleep. - START ketoconazole alternated with Head and Shoulders - START betamethasone lotion BID PRN PROCEDURES CRYOTHERAPY PROCEDURE NOTE: On the central forehead, 1x lesion(s) treated with 1-2 freeze-thaw cycles of liquid nitrogen cryotherapy. Counseled that lesions will become red, may blister, and then heal in 1-2 weeks. Risks including recurrence and scarring were dicussed. Patient endorsed understanding. RTC 12 months for UBSE; PRN. Dr. Wick saw and evaluated the patient with me, and agrees with the findings, assessment and plan as outlined. /gilberto/ JUAN CARLOS BLAIR RESIDENT Signed: 05/19/2023 16:44 Receipt Acknowledged By: 05/24/2023 10:31 /gilberto/ KAROL WICK MD CHIEF DERMATOLOGY 05/24/2023 ADDENDUM STATUS: COMPLETED I saw and evaluated the patient with the resident, and agree with the assessment and plan as written in the resident's note. /gilberto/ KAROL WICK MD CHIEF DERMATOLOGY Signed: 05/24/2023 10:32 ROSSY,JUAN CARLOS PENALOZA [facility]
--- OUTSIDE RECORDS SUMMARY | 2023-07-01 11:51 | XMS_ITS | Continuity of Care Document ---
Author Name [facility] Organization [facility] Care Team Providers Care Assistant Professor Of Dietetics Name Role Phone [facility] Unavailable Unavailable Problems Combined list of problems from Department of Defense and [facility] Affairs facilities. It does not include entries that were removed or entered in error. Problem Status Onset Date Problem Type Date of Resolution Comments Source History of polyp of colon Active 012 Condition May 03, 2017 Entered By: SAW DAS Comment: Hyperplastic [facility] Astigmatism, Unspec Active Condition [place] [facility] Cataract nos Active Condition [facility] Co-Managed Care Active Condition October 18, 2017 Entered By: SAW DAS Comment: Outside Primary: [place], [place]. [facility] History of surgery Active Condition M 2017 Entered By: SAW DAS Comment: Hemorrhoidecto my. [facility] History of Tobacco Use ([facility] [id number]) Active Condition October 18, 2017 Entered By: SAW DAS Comment: AAA screen completed 10.04.2012. [facility] Hyperbilirubinemia Active Condition [facility] Hyperlipidemia Active Condition [facility] [place] [facility] Hypermetropia/Hypero isiah Active Condition [facility] Hypertension Active Condition [facility] Impaired Fasting Glucose ([facility] [id number]) Active Condition [facility] Melanoma of Skin (ICD-9-CM 172.9) [facility] [place] [facility] Mild non proliferative retinopathy Active Condition Sep 28, 2016 Entered By: SAW DAS Comment: 04/19/2016 - last [facility] marine engineering consultant visitSep 28, 2016 Entered By: SAW DAS Comment: 02/2012 - first recorded in [facility] record [facility] Preglau/Glauc Suspect Active Condition [facility] Presbyopia Active Condition [facility] comanaged care Inactive Condition 10/18/2017 Jul 12, 2008 Entered By: NAN STREET Comment: Dr Oliver Terrazas, PCP, [facility] Diabetes with Ophthalmic Manifestations, type II or unspecified type, not stated Inactive Condition 10/18/2017 [facility] HEMORRHOIDECTOMY Inactive Condition 10/18/2017 Lamin boudreaux 2008 Entered By: NAN STREET Comment: Jul 2006 [facility] Hyperbilirubinemia Inactive Condition 10/18/2017 [facility] Impaired FASTING Glucose (ICD-9-CM 790.21) Inactive Condition 07/14/2010 [facility] Diagnosis: ICD-10-CM L57.0 Actinic keratosis Active Diagnosis [facility] Diagnosis: ICD-10-CM I10 Essential (primary) hypertension Active Diagnosis [facility] Medications Combined list of outpatient medications from Department of Defense and [facility] Affairs facilities.Medications provided include 1) outpatient medications from the last 15 months, and 2) patient-reported medications. Medication Details Route Status Patient Instructions Prescription Expires Prescription Number Last Dispense Date Ordering Provider Order Date Source AMLODIPINE BESYLATE 2.5MG TAB TAKE ONE TABLET BY MOUTH EVERY DAY FOR BLOOD PRESSURE FOR BLOOD PRESSURE ORALLY ACTIVE 10/09/2023 [id number] ARABELLA ARAUZ 2022 [facility] AMLODIPINE BESYLATE 5MG TAB TAKE ONE-HALF TABLET BY MOUTH DAILY FOR BLOOD PRESSURE ORALLY DISCONT INUED (EDIT) 11/03/2022 [id number] BENJA BARRY 2021 [facility] ASCORBIC ACID 500MG TAB TAKE ONE TABLET BY MOUTH EVERY DAY ORALLY ACTIVE [address] [facility] ASPIRIN 81MG TAB,EC TAKE ONE TABLET BY MOUTH ORALLY ACTIVE [address] 2008 [facility] BETAMETHASO NE VALERATE 0.1% LOTION APPLY 10-15 DROPS TO AFFECTED AREA TOPICALL Y TWICE A DAY FOR ITCHY AREAS OF SCALP FOR EXTERNAL USE TOPICA LLY ACTIVE 05/19/2024 [id number] JUAN CARLOS BLAIR 2022 [facility] CHLORTHALID ONE 25MG TAB TAKE ONE TABLET BY MOUTH EVERY MORNING FOR HIGH BLOOD PRESSURE ORALLY ACTIVE 10/09/2023 [id number] 3 ARABELLA ARAUZ 2022 [place] [facility] CHLORTHALID ONE 25MG TAB TAKE ONE TABLET BY MOUTH EVERY MORNING FOR HIGH BLOOD PRESSURE ORALLY DISCONT INUED 11/19/2022 [id number] 3 ARABELLA ARAUZ 2021 [place] [facility] CHOLECALCIF JUAN 25MCG (1,000UNIT) TAB TAKE ONE TABLET BY MOUTH EVERY DAY ORALLY ACTIVE ARABELLA ARAUZ 2022 [place] [facility] DORZOLAMIDE HCL 22.3MG/JESU LOL MALEATE 6.8MG/ML SOLN,OPH INSTILL 1 DROP IN BOTH EYES TWICE A DAY BOTH EYES ACTIVE 06/15/2024 [id number] 4 PERLA CHOWDARY IEL L 2023 [place] [facility] DORZOLAMIDE HCL 22.3MG/JESU LOL MALEATE 6.8MG/ML SOLN,OPH INSTILL 1 DROP IN BOTH EYES TWICE A DAY BOTH EYES DISCONT INUED 06/02/2023 [id number] 3 PERLA CHOWDARY IEL L 2021 [place] [facility] FLUTICASONE PROPIONATE 50MCG/SPRAY SOLN,NASAL, 16GM SPRAY 2 SPRAYS IN EACH NOSTRIL EVERY DAY NEEDED NASAL ACTIVE KENDALL PRYOR 2015 [place] [facility] KETOCONAZOL E 2% SHAMPOO SHAMPOO SCALP TOPICALL Y 3 TIMES WEEKLY FOR DANDRUFF *LATHER FOR 5 MINUTES THEN RINSE* TOPICA LLY ACTIVE 05/19/2024 [id number] JUAN CARLOS BLAIR 2022 [place] [facility] LATANOPROST 0.005% SOLN,OPH INSTILL 1 DROP IN BOTH EYES EVERY EVENING BOTH EYES SUSPEND ED 05/27/2024 [id number] 4 PERLA CHOWDARY IEL L 2022 [place] [facility] LATANOPROST 0.005% SOLN,OPH INSTILL 1 DROP IN BOTH EYES EVERY EVENING BOTH EYES DISCONT INUED 05/08/2023 [id number] 3 PERLA CHOWDARY IEL L 2021 [facility] LISINOPRIL 40MG TAB TAKE ONE TABLET BY MOUTH EVERY MORNING FOR BLOOD PRESSURE ORALLY ACTIVE 10/09/2023 [id number] 3 ARABELLA ARAUZ 2022 [facility] LISINOPRIL 40MG TAB TAKE ONE TABLET BY MOUTH EVERY MORNING FOR BLOOD PRESSURE ORALLY DISCONT INUED 12/05/2022 [id number] 3 ARABELLA ARAUZ 2021 [facility] LORATADINE 10MG TAB TAKE ONE TABLET BY MOUTH EVERY DAY NEEDED ORALLY ACTIVE KENDALL PRYOR 2015 [facility] MULTIVITAMI NS W/MINERALS CAP/TAB TAKE ONE TABLET BY MOUTH EVERY DAY ORALLY ACTIVE [address] 2010 [facility] ROSUVASTATI N CA 10MG TAB TAKE ONE-HALF TABLET BY MOUTH EVERY DAY FOR CHOLESTE ROL ORALLY DISCONT INUED 11/03/2022 [id number] 3 BENJA BARRY BEHMARA 2021 [facility] ROSUVASTATI N CA 5MG TAB TAKE ONE TABLET BY MOUTH EVERY DAY FOR CHOLESTE ROL ORALLY ACTIVE 10/09/2023 [id number] ARABELLA ARAUZ 2022 [facility] VITAMIN E CAP,ORAL TAKE BY MOUTH EVERY DAY ORALLY ACTIVE KENDALL PRYOR 2015 [facility] Immunizations Combined list of available immunizations from the Department of Defense and Veterans Affairs facilities. Immunization Series Date Given Administered By Site Reaction Lot Number CVX Code Drug Registered Public Health Nurse Status Comments Source COVID-19 (iRewardChart), MRNA, LNP-S, BIVALENT BOOSTER, PF, 30 MCG/0.3 ML DOSE 1 2021 300 complet ed [facility] COVID-19 (iRewardChart), MRNA, LNP-S, PF, 30 MCG/0.3 ML DOSE, MEGHAN-SUCROSE (AGES 12+ YEARS) 3 2021 217 complet ed [facility] COVID-19 (iRewardChart), MRNA, LNP-S, PF, 30 MCG/0.3 ML DOSE 3 2020 208 complet ed [facility] COVID-19 (PFIZER), MRNA, LNP-S, PF, 30 MCG/0.3 ML DOSE 2 2020 208 complet ed [facility] COVID-19 (PFIZER), MRNA, LNP-S, PF, 30 MCG/0.3 ML DOSE 1 2020 208 complet ed [facility] INFLUENZA, UNSPECIFIED FORMULATION 2019 88 complet ed [facility] ZOSTER RECOMBINANT 2 2019 187 complet ed [facility] ZOSTER RECOMBINANT 1 2018 187 complet ed [facility] INFLUENZA, HIGH DOSE SEASONAL 2017 135 complet ed [facility] INFLUENZA, HIGH DOSE SEASONAL 2016 135 complet ed [facility] PNEUMOCOCCAL POLYSACCHARID E PPV23 2016 33 complet ed Date unknown. He will check with primary in [facility] INFLUENZA, HIGH DOSE SEASONAL 2015 135 complet ed [facility] INFLUENZA, HIGH DOSE SEASONAL 2014 135 complet ed [facility] PNEUMOCOCCAL CONJUGATE PCV 13 2014 133 complet ed [facility] TDAP 2013 115 complet ed [employer] th/Crespo Lot# [id number] Exp.Date- -09/21/15 [facility] INFLUENZA, UNSPECIFIED FORMULATION 2012 88 complet ed [facility] INFLUENZA, UNSPECIFIED FORMULATION 2011 88 complet ed [facility] INFLUENZA, UNSPECIFIED FORMULATION 2010 88 complet ed [facility] INFLUENZA, UNSPECIFIED FORMULATION 2009 88 complet ed [facility] NOVEL INFLUENZA-H1N 1-09, ALL FORMULATIONS 2008 128 complet ed [facility] INFLUENZA, UNSPECIFIED FORMULATION 2008 88 complet ed [facility] INFLUENZA, UNSPECIFIED FORMULATION 2007 88 complet ed [facility] ZOSTER LIVE 2007 121 complet ed [facility] INFLUENZA (HISTORICAL) 2006 88 complet ed [facility] INFLUENZA (HISTORICAL) 2005 88 complet ed [facility] INFLUENZA (HISTORICAL) 2004 88 complet ed [facility] INFLUENZA (HISTORICAL) 2004 88 complet ed [facility] TD(ADULT) UNSPECIFIED FORMULATION 2004 139 complet ed within the last 10 years [facility] INFLUENZA (HISTORICAL) 2003 88 complet ed [facility] PNEUMOCOCCAL, UNSPECIFIED FORMULATION 1999 109 complet ed [facility] Results Combined list of recent chemistry, hematology and other laboratory results from Department of Defense and Veterans Affairs, ranging from 15 months to all on record, depending upon the facility. Order Name Results Value Reference Range Date Interpretation Specimen Comments Source HEMOGLOBI N A1C HEMOGLOBIN A1C/HEMOGLO BIN.TOTAL IN BLOOD 5.7 4.0 - 6.0 10/08 Specimen Type: BLOOD Comment: Values obtained from A1C measurement s can vary. For typical A1C assays, a reported value of 7.0 could actually be between 6.7 and 7.3 if measured by a reference method. A reported value of 9.0 could actually be between 8.7 and 9.3. Ref: http://www. ngsp.org/[place] Pdata.asp Ordering Provider: ARABELLA ARAUZ Report Released Date/Time: Dec 18, 2021 10:51 AM Reporting Lab: [facility] [phone] Performing Lab: [facility] [phone] [facility] BASIC METABOLIC PANEL+MG CREATININE [MASS/VOLUM E] IN SERUM OR PLASMA 0.6 0.7 - 1.2 10/08 L Specimen Type: PLASMA No comment entered. Ordering Provider: ARABELLA ARAUZ Report Released Date/Time: Dec 18, 2021 10:51 AM Reporting Lab: [facility] [phone] Performing Lab: [facility] [phone] [facility] BASIC METABOLIC PANEL+MG UREA NITROGEN [MASS/VOLUM E] IN SERUM OR PLASMA 14 8 - 26 10/08 Specimen Type: PLASMA No comment entered. Ordering Provider: ARABELLA ARAUZ Report Released Date/Time: Dec 18, 2021 10:51 AM Reporting Lab: [facility] [phone] Performing Lab: [facility] [address] [place] [facility] BASIC METABOLIC PANEL+MG GLUCOSE [MASS/VOLUM E] IN SERUM OR PLASMA 146 70 - 100 10/08 H Specimen Type: PLASMA No comment entered. Ordering Provider: ARABELLA ARAUZ Report Released Date/Time: Dec 18, 2021 10:51 AM Reporting Lab: [facility] [phone] Performing Lab: [facility] [phone] [place] [facility] BASIC METABOLIC PANEL+MG SODIUM [MOLES/VOLU ME] IN SERUM OR PLASMA 137 136 - 145 10/08 Specimen Type: PLASMA No comment entered. Ordering Provider: ARABELLA ARAUZ Report Released Date/Time: Dec 18, 2021 10:51 AM Reporting Lab: [facility] [phone] Performing Lab: [facility] [phone] [place] [facility] BASIC METABOLIC PANEL+MG POTASSIUM [MOLES/VOLU ME] IN SERUM OR PLASMA 3.5 3.5 - 5.1 10/08 Specimen Type: PLASMA No comment entered. Ordering Provider: ARABELLA ARAUZ Report Released Date/Time: Dec 18, 2021 10:51 AM Reporting Lab: [facility] [address] Performing Lab: [facility] [address] [place] [facility] BASIC METABOLIC PANEL+MG CHLORIDE [MOLES/VOLU ME] IN SERUM OR PLASMA 102 98 - 107 10/08 Specimen Type: PLASMA No comment entered. Ordering Provider: ARABELLA ARAUZ Report Released Date/Time: Dec 18, 2021 10:51 AM Reporting Lab: [facility] [phone] Performing Lab: [facility] [address] [place] [facility] BASIC METABOLIC PANEL+MG CARBON DIOXIDE, TOTAL [MOLES/VOLU ME] IN SERUM OR PLASMA 28 22 - 29 10/08 Specimen Type: PLASMA No comment entered. Ordering Provider: ARABELLA ARAUZ Report Released Date/Time: Dec 18, 2021 10:51 AM Reporting Lab: [facility] [address] Performing Lab: [facility] [phone] [place] [facility] BASIC METABOLIC PANEL+MG CALCIUM [MASS/VOLUM E] IN SERUM OR PLASMA 9.7 8.4 - 10.2 10/08 Specimen Type: PLASMA No comment entered. Ordering Provider: ARABELLA ARAUZ Report Released Date/Time: Dec 18, 2021 10:51 AM Reporting Lab: [facility] [phone] Performing Lab: [facility] [address] [place] [facility] BASIC METABOLIC PANEL+MG MAGNESIUM [MASS/VOLUM E] IN SERUM OR PLASMA 1.9 1.6 - 2.6 10/08 Specimen Type: PLASMA No comment entered. Ordering Provider: ARABELLA ARAUZ Report Released Date/Time: Dec 18, 2021 10:51 AM Reporting Lab: [facility] [address] Performing Lab: [facility] [address] [place] [facility] BASIC METABOLIC PANEL+MG ANION GAP IN SERUM OR PLASMA 7 5 - 15 10/08 Specimen Type: PLASMA No comment entered. Ordering Provider: ARABELLA ARAUZ Report Released Date/Time: Dec 18, 2021 10:51 AM Reporting Lab: [facility] [phone] Performing Lab: [facility] [address] [place] [facility] BASIC METABOLIC PANEL+MG GLOMERULAR FILTRATION RATE/1.73 SQ M.PREDICTED [VOLUME RATE/AREA] IN SERUM, PLASMA OR BLOOD BY CREATININE- BASED FORMULA (CKD-EPI) >90 60 10/08 Specimen Type: PLASMA No comment entered. Ordering Provider: ARABELLA ARAUZ Report Released Date/Time: Dec 18, 2021 10:51 AM Reporting Lab: [facility] [address] Performing Lab: [facility] [address] [place] [facility] Vital Signs Combined list of inpatient and outpatient Vital Signs from Department of Defense and Veterans Affairs, ranging from 12 months to all on record, depending upon the facility. Vital Sign Value Date Comments Source PULSE OXIMETRY 99% 10/08/2022 15:12:43 M [facility] WEIGHT 177.5 10/08/2022 15:12:43 [place] [facility] BMI 25kg/m2 10/08/2022 15:12:43 [place] [facility] PAIN 0 10/08/2022 15:12:43 [place] [facility] HEIGHT 70.5 10/08/2022 15:12:43 [place] [facility] TEMPERATURE 98 10/08/2022 15:12:43 [facility] PULSE 67 10/08/2022 15:12:43 [place] [facility] RESPIRATION 20 10/08/2022 15:12:43 [facility] Encounters Combined list of: 1) Encounters from Department of Veterans Affairs facilities going back up to thelast 18 months. 2) Encounters from the Department of [facility] facilities going back up to 280 months. Location Location Details Encounter Type Encounter Number Reason For Visit Attending Provider ADM Date DC Date Status Disposition Source [place] [facility] OFFICE O/P EST MOD 30-39 MIN [id number] Diagnos is: ICD-10- CM L57.0 Actinic keratos is
Viji CABRERA 02/11 [facility] [place] [facility] Outpatient Encounter [id number] 03/04 [facility] [place] [facility] Outpatient [facility]counter [id number] 03/16 [facility] [place] [facility] Outpatient Encounter [id number] 05/06 [place] [facility] [place] [facility] Outpatient Encounter [id number] [place] 05/10 [place] [facility] [place] [facility] Outpatient Encounter [id number] 09/01 [place] [facility] [place] [facility] Outpatient [facility]counter [id number] 10/08 [facility] [place] [facility] OFFICE O/P EST MOD 30-39 MIN [id number] Diagnos is: ICD-10- CM I10 Essenti al (primar y) hyperte nsion<b r/> ARABELLA ARAUZ B 10/08 [facility] [place] [facility] OFF[place] O/P EST MOD 30-39 MIN [id number] Diagnos is: ICD-10- CM L57.0 Actinic keratos is
BERSHOW,AN SIMRAN L 05/19 [facility] Social History Combined list of available smoking, tobacco, and other social history from Department of Defense and [facility] facilities. Social History Type Response Date Comment Sourc e Tobacco smoking status NDIS DE-TOBACCO NEVER USED 10/08/2022 [facility] History of tobacco use DE-TOBACCO FORMER USER 10/23/2020 [facility] of [facility]/29/2018 [facility] History of tobacco use FORMER TOBACCO US ER 7Y OR GREATER 07/22/2017 [facility] History of tobacco use FORMER TOBACCO US ER 7Y OR GREATER 09/28/2016 [facility] History of tobacco use FORMER TOBACCO US ER 7Y OR GREATER 09/29/2015 [facility] History of tobacco use FORMER TOBACCO US ER 7Y OR GREATER 07/11/2007 [facility] Plan of Care List of future care activities from [facility] facilities. Additional future care activities may be listed in the Assessment and Plan section. Date/Time Care Activity Care Activity Detail Facili ty 07/19/2023 AMBULATORY - REHAB MEDICINE AMBULATORY - REHAB MEDICINE [facility] Advance Directives List of completed, amended, or rescinded Advance Directives on record at [facility] facilities. An actual copy of the Directive is not included. Date Advance Directive Provider Source 12/06/2020 [facility]2020 ADVANCE DIRECTIVE DISCUSSION NICK RICKS [facility] 10/19/2004 ADVANCE DIRECTIVE RAMIRO ANAND [facility]
--- NOTE | 2023-07-06 12:09 | ED.NURSE ---
Pt called with questions about the quantity of pills dispensed by [employer] vs. the #of days the provider recommended for the pt to take. DC recommendations reiterated with pt and pt states understanding that he will have some extra pills left over after taking his 8 days of pills due to the [employer] quantity of pills dispensed being more than was needed due to the length of rx prescribed by MD.
== END 2023-07-01 13:01 | disposition home or self-care (01) ==
PROVIDERS: Emergency Provider Family Medicine; PCP Family Medicine
DX: N30.91 Cystitis, unspecified with hematuria (principal)
CPT/HCPCS: 81001; 87086; 87186; 99283; 99284

== ENCOUNTER 2023-09-01 11:00 | Outpatient (RCR) | payer MEDICARE, BC, SELFPAY | END 2023-10-13 10:53 | disposition home or self-care (01) | PROVIDERS: PCP Family Medicine; Visit Provider Family Medicine | DX: R26.89 Other abnormalities of gait and mobility (principal); R26.81 Unsteadiness on feet; Z51.89 Encounter for other specified aftercare | CPT/HCPCS: 97110; 97112; 97161; 97530 ==